=== PATIENT | male | born 1975 | race Hispanic/Latino ===

== ENCOUNTER 2017-09-16 07:20 | Emergency (ER) | payer SELFPAY ==
[~2017-09-16] VITALS: Ht 170.2 cm; Wt 95.0 kg
[2017-09-16] MEDS ORDERED: CEPHALEXIN500 M1 PO (07:53)
[2017-09-16 09:08] VITALS: BP 150/90
== END 2017-09-16 09:20 | disposition home or self-care (01) | DRG 603 ==
LOC: ED 07:20
DX: L03.115 Cellulitis of right lower limb (principal)

== ENCOUNTER 2017-09-26 19:05 | Emergency (ER) | payer SELFPAY ==
[~2017-09-26] VITALS: Ht 170.2 cm; Wt 98.0 kg
[~2017-09-26 19:05] MED LIST: CEPHALEXIN500 M1 PO
[2017-09-26 19:53] VITALS: BP 160/110
== END 2017-09-26 19:57 | disposition home or self-care (01) | DRG 556 ==
LOC: ED 19:05
DX: M79.674 Pain in right toe(s) (principal); I10 Essential (primary) hypertension

== ENCOUNTER 2020-05-22 09:32 | Emergency (ER) | payer SELFPAY ==
[2020-05-22] MEDS ORDERED: LIDOCAINE HCL VIS2 % TP (09:56)
[2020-05-22] MEDS ORDERED: ULTRAM50 M1 PO (09:56)
[2020-05-22] MEDS ORDERED: ANUCORT-HC25 MG RE (09:56)
[2020-05-22 10:05] VITALS: BP 144/82
== END 2020-05-22 10:04 | disposition home or self-care (01) | DRG 395 ==
LOC: ED 09:32
DX: K64.4 Residual hemorrhoidal skin tags (principal); I10 Essential (primary) hypertension

== ENCOUNTER 2024-03-17 09:14 | Emergency (ER) | payer SELFPAY ==
[~2024-03-17] VITALS: Ht 170.2 cm; Wt 107.0 kg
[~2024-03-17 09:14] MED LIST changes: +ANUCORT-HC25 MG RE; +LIDOCAINE HCL VIS2 % TP; +ULTRAM50 M1 PO
[2024-03-17 09:36] VITALS: BP 130/82
[2024-03-17 10:00] VITALS: BP 124/91
[2024-03-17 10:30] VITALS: BP 125/78
[2024-03-17] MEDS ORDERED: LIDOcaine HCl 1% (Local Anesth.) 20 ML VIAL IM STA (10:48)
[2024-03-17] MEDS ORDERED: cefTRIAXone SODIUM 1 GM/VIAL SDV IM ONE (10:50)
[2024-03-17] MEDS ORDERED: LEVOFLOXACIN750 MG PO (10:50)
[2024-03-17] MEDS ORDERED: AZITHROMYCIN 250 MG/TAB PO ONE (10:50)
[2024-03-17] MEDS ORDERED: BENZONATATE200 MG PO (10:50)
[2024-03-17 11:00] VITALS: BP 141/111
[2024-03-17 11:09] VITALS: BP 141/111
== END 2024-03-17 11:14 | disposition home or self-care (01) | DRG 195 ==
LOC: ED 09:14
DX: J18.9 Pneumonia, unspecified organism (principal); I10 Essential (primary) hypertension; Z20.822 Contact with and (suspected) exposure to COVID-19
CPT/HCPCS: J0696